=== PATIENT | female | born 1960 | race Caucasian/White ===

== ENCOUNTER 2019-04-23 22:42 | Emergency (ER) | payer OTHER ==
--- NOTE | 2019-04-23 23:19 | EDM.PDOC ---
ED HPI GENERAL MEDICAL PROBLEM - General Chief Complaint: Upper Extremity Injury/Pain Stated Complaint: INJURY TO RIGHT ARM Time Seen by Provider: 04/23/19 23:14 Source of Information: Reports: Patient, Family, RN Notes Reviewed History Limitations: Reports: No Limitations - History of Present Illness INITIAL COMMENTS - FREE TEXT/NARRATIVE: 58-year-old female presents to the emergency department with a complaint of right forearm pain, she injured herself when she fell off a hover board, there was no loss of consciousness complains of no other injury right lower arm Pain Score (Numeric/FACES): 5 - Related Data Allergies Allergy/AdvReac Type Severity Reaction Status Date / Time No Known Allergies Allergy Verified 04/23/19 23:02 Home Meds: Home Meds NK [No Known Home Meds] 04/23/19 [History] Past Medical History HEENT History: Reports: Impaired Vision [employer] History: Reports: , Spontaneous - Infectious Disease History Infectious Disease History: Reports: Chicken Pox - Past Surgical History HEENT Surgical History: Reports: Oral Surgery GI Surgical History: Reports: Appendectomy Female Surgical History: Reports: Other (See Below) Other Female Surgeries/Procedures: Uterus and Left ovary removed Social & Family History - Tobacco Use Smoking Status *Q: Never Smoker - Caffeine Use Caffeine Use: Reports: None - Recreational Drug Use Recreational Drug Use: No Review of Systems - Review of Systems Review Of Systems: See Below Musculoskeletal: Reports: Arm Pain Skin: Reports: No Symptoms Neurological: Reports: No Symptoms ED EXAM, GENERAL - Physical Exam Exam: See Below Free Text/Narrative:: Examination of the forearm I do not appreciate any erythema there is no edema noted radial pulse is +2, full range of motion of all digits full range of motion with wrist pain can be elicited with supination at the proximal aspect of the forearm sensation is intact ED TRAUMA EXTREMITY PROCEDURES - Splinting Right Upper Extremity Splint Site: Forearm Pre-Procedure NV Status: Normal Post-Procedure NV Status: Normal Splint Material: Fiberglass Splint Design: Posterior Applied & Form Fitted By: Provider, Nurse Provider Post-Splint Application NV Check: NV Status Normal, Good Position Complications: No Course - Vital Signs Last Recorded V/S: Last Vital Signs Temp 98.6 F 04/23/19 23:04 Pulse 101 H 04/23/19 23:04 Resp 16 04/23/19 23:04 BP 148/83 H 04/23/19 23:04 Pulse Ox 95 04/23/19 23:04 Departure - Departure Time of Disposition: 00:12 Disposition: Home, Self-Care 01 Condition: Fair Clinical Impression: Fracture of radius Qualifiers: Encounter type: initial encounter Radius location: proximal Fracture type: closed Fracture morphology: other fracture Laterality: right Qualified Code(s): S52.181A - Other fracture of upper end of right radius, initial encounter for closed fracture - Discharge Information Referrals: PCP,None [Primary Care Provider] - Forms: ED Department Discharge Additional Instructions: Use Tylenol or Motrin as needed for pain control, please follow-up with your orthopedic surgeon upon return home, call or return to the emergency department worsening of symptoms Sepsis Event Note - Evaluation Sepsis Screening Result: No Definite Risk - Focused Exam Vital Signs: Vital Signs Temp Pulse Resp BP Pulse Ox 04/23/19 23:04 98.6 F 101 H 16 148/83 H 95 04/23/19 22:58 98.6 F 101 H 16 148/83 H 95 Date Exam was Performed: 04/24/19 Time Exam was Performed: 00:10 - Assessment/Plan Plan: Assessment Acuity = acute Site and laterality = nondisplaced radial neck fracture right side closed Etiology = secondary to fall with trauma Manifestations = pain Location of injury = Home Lab values = x-ray describes a fracture above Plan After placing him in a splint she is can use Tylenol Motrin as baseline pain control she does have hydrocodone at home which she will use for breakthrough pain, she was provided with a disc of the images and will follow-up with her orthopedic upon return home This note was dictated using [employer] voice recognition software please call with any questions on syntax or grammar.
--- NOTE | 2019-04-23 23:41 | CRLCR ---
Indication: Fall, pain Technique: Two views right forearm Comparison: None Findings: Bones: There is a nondisplaced fracture at the radial neck. Joint spaces: No dislocation. Small elbow effusion. Soft tissues: Unremarkable. Dictated by Bryon Colin MD @ Apr 23 2019 11:39PM Signed by Dr. Bryon Colin @ Apr 23 2019 11:40PM
== END 2019-04-24 00:23 | disposition home or self-care (01) ==
LOC: JP.ED 22:42
DX: S52.181A Other fracture of upper end of right radius, initial encounter for closed fracture (principal); W19.XXXA Unspecified fall, initial encounter
CPT/HCPCS: 29105; 73090-RT; 99283-25

== ENCOUNTER 2024-02-11 17:43 | Emergency (ER) | payer OTHER ==
[2024-02-11 18:02] LABS: APPEARANCE,URINE SLIGHTLY CLOUDY (CLEAR); BILIRUBIN,URINE NEGATIVE (NEGATIVE); COLOR,URINE YELLOW (YELLOW); GLUCOSE,URINE NEGATIVE (NEGATIVE); KETONES,URINE NEGATIVE (NEGATIVE); LEUKOCYTE ESTERASE,URINE TRACE (NEGATIVE); NITRITE,URINE NEGATIVE (NEGATIVE); OCCULT BLOOD,URINE NEGATIVE (NEGATIVE); PROTEIN,URINE NEGATIVE (NEGATIVE); UROBILINOGEN,URINE 0.2 EU/dL (0.2-1.0)
[2024-02-11 18:06] LABS: AMORPHOUS SEDIMENT,URINE NOT SEEN; BACTERIA,URINE NOT SEEN; EPITHELIAL CELLS,URINE FEW; MUCUS,URINE NOT SEEN; RBC,URINE 0-5 (0-5); WBC,URINE 0-5 (0-5)
== END 2024-02-11 19:28 | disposition home or self-care (01) ==
LOC: JP.ED 17:43
DX: M54.50 Low back pain, unspecified (principal); J06.9 Acute upper respiratory infection, unspecified; Z90.49 Acquired absence of other specified parts of digestive tract; Z90.710 Acquired absence of both cervix and uterus
CPT/HCPCS: 81001; 99283